=== PATIENT | female | born 1970 | race American Indian/Alaskan Native ===

== ENCOUNTER 2018-06-10 10:12 | Outpatient (CLI) | payer OTHER ==
--- NOTE | 2018-06-10 13:04 | Short Stay Summary ---
Short Stay Documentation Date of service: 06/10/18 Narrative H&P: bilateral cervical and axillary adenopathy - History Principal diagnosis: adenopathy Past Medical History: No medical history - Allergies and Medications Current Medications: Allergies Penicillins Adverse Reaction (Unverified 05/28/18 09:15) Swelling - Physical exam General appearance: no acute distress Extremities: no ischemia, pulses intact, No edema - Brief post op/procedure progress note Date of procedure: 06/10/18 Pre-op diagnosis: adenopathy Post-op diagnosis: same Procedure: US guided right axillary lymph node biopsy Anesthesia: local Findings: bilateral cervical and axillary adenopathy Surgeon: ALIX NATH Estimated blood loss: none Pathology: list (18G core x 2) Specimen disposition: to lab Condition: stable - Disposition Condition at discharge: Good Disposition: [id number] TO HOME OR SELFCARE Short Stay Discharge Plan Follow up with: JERRY BUTT MD [Primary Care Provider] - 7 Days
--- NOTE | 2018-06-10 13:52 | Ultrasound Report ---
ULTRASOUND BIOPSY LYMPH NODE History: Lymphadenopathy. Description of procedure: Informed consent was obtained. Sterile technique was utilized. 1% lidocaine for skin anesthesia. Using ultrasound guidance, a 17-gauge introducer needle was advanced to the leading edge of an enlarged right axillary lymph node measuring 5 x 2 x 3 cm. 2 separate 1.3 cm 18-gauge core biopsies were obtained and placed in formalin and RPI media. No complications. Impression: Successful ultrasound-guided biopsy of right axillary adenopathy.
[2018-06-10 14:03] VITALS: BP 130/68
== END 2018-06-10 14:10 | disposition home or self-care (01) ==
LOC: CATHLABREC 10:12
PROVIDERS: ATTEND Internal Medicine Hematology & Oncology
DX: R59.9 Enlarged lymph nodes, unspecified (principal); Z90.710 Acquired absence of both cervix and uterus
CPT/HCPCS: 38505; 76942; 88184; 88185; 88305; 88341; 88342

== ENCOUNTER 2018-07-10 10:16 | Outpatient (CLI) | payer OTHER ==
--- NOTE | 2018-07-11 08:58 | PET Report ---
PET SB TO MT INITIAL: HISTORY: Adenopathy, lymphoma or leukemia. TECHNIQUE: 13.9 millicuries F-18 FDG was administered intravenously. Noncontrast CT images and PET images were obtained from the skull base to the proximal thighs. Fused images were reviewed on a workstation. The patient's blood glucose level measured 84. COMPARISON: CT neck and chest with contrast dated 05/28/18. FINDINGS: BRAIN: physiologic FDG uptake in the imaged brain. NECK: There are multiple borderline and mildly enlarged lymph nodes in the bilateral jugular chains and posterior cervical triangles. One of the largest lymph nodes in the right posterior cervical triangle measures 2.0 x 1.6 cm. These lymph nodes appear mostly hypometabolic with max SUV values ranging from 1.8-2.2. MEDIASTINUM: physiologic FDG uptake. No bulky mediastinal adenopathy is identified. There appears to be one borderline lymph node at the right hilum measuring 1 cm with max SUV measures 1.9. LUNGS: physiologic FDG uptake. PLEURA/PERICARDIUM: physiologic FDG uptake. THORACIC LYMPH NODES: There are numerous enlarged bilateral axillary lymph nodes. The largest lymph node on the right measures 4.8 x 2.1 cm. The largest lymph node on the left measures 4.4 x 2.1 cm. These lymph nodes are mildly hypermetabolic with max SUV values ranging from 2.1-3.3. HEPATOBILIARY: physiologic FDG uptake. Mean liver SUV measures 4.5. PANCREAS: physiologic FDG uptake. SPLEEN: physiologic FDG uptake. ADRENAL GLANDS: physiologic FDG uptake. KIDNEYS/RENAL COLLECTING SYSTEMS: physiologic FDG uptake. BOWEL/MESENTERY: physiologic FDG uptake. PELVIC VISCERA: physiologic FDG uptake. ABDOMINAL/PELVIC LYMPH NODES: There are multiple mildly enlarged lymph nodes in the left periaortic chain, bilateral iliac chains and bilateral inguinal chains. The largest left para-aortic lymph node measures 2.6 x 2.0 cm and demonstrates max SUV of 2.2. One of the largest iliac lymph nodes is in the left external iliac chain measuring 2.9 x 1.8 cm and demonstrates a max SUV of 1.3. One of the largest inguinal lymph node is on the right side measuring 3.5 x 1.7 with a max SUV of 1.8. MUSCULOSKELETAL: physiologic FDG uptake. IMPRESSION: There are multiple enlarged lymph nodes in multiple lymph node chains throughout the neck, chest, abdomen and pelvis. Suspicious adenopathy is identified in the bilateral jugular chains, bilateral posterior cervical triangles, bilateral axillary chains, left periaortic chain, bilateral iliac chains and bilateral inguinal chains. Standard uptake values are mildly elevated in the axillary chains as described above. The cervical lymph nodes and the lymph nodes below the hemidiaphragm are relatively hypometabolic but are still suspicious for neoplastic involvement.
== END 2018-07-10 10:17 | disposition home or self-care (01) ==
LOC: PET 10:16
PROVIDERS: ATTEND Internal Medicine Hematology & Oncology
DX: C85.80 Other specified types of non-Hodgkin lymphoma, unspecified site (principal); R59.0 Localized enlarged lymph nodes
CPT/HCPCS: 78815; 82962; A9552